=== PATIENT | male | born 1945 | race Caucasian/White ===

== ENCOUNTER 2023-02-14 21:08 | Outpatient (REF) | payer MEDICARE, SELFPAY ==
[2023-02-14 17:17] LABS: HGB 13.8 g/dL (13.5-17.5); MCH 33.1 pg (27.0-33.0); MCHC 34.5 % (32.0-36.0); MCV 96 fL (80-95); MPV 11.8 fL (8.0-11.0); Platelet Count 207 10^3/uL (130-400); RBC 4.17 10^6/uL (4.36-5.78); RDW 11.9 % (11.8-14.1); RDW-SD 41.1 fL; WBC 5.04 10^3/uL (4.4-10.8)
[2023-02-14 17:27] LABS: Calculated LDL 54 mg/dL (<100); Cholesterol 113 mg/dL (<200); HDL Cholesterol 48 mg/dL (40-60); Triglyceride 58 mg/dL (<150)
== END 2023-02-14 21:09 | disposition home or self-care (01) ==
LOC: NCHCN 21:08
PROVIDERS: PCP Internal Medicine; Visit Provider Nurse Practitioner Family
DX: I25.10 Atherosclerotic heart disease of native coronary artery without angina pectoris (principal); Z12.5 Encounter for screening for malignant neoplasm of prostate; I10 Essential (primary) hypertension; R53.83 Other fatigue; R35.1 Nocturia; R63.4 Abnormal weight loss
CPT/HCPCS: 80061; 84153; 85027

== ENCOUNTER 2023-03-08 19:01 | Outpatient (REF) | payer MEDICARE, SELFPAY ==
--- OUTSIDE RECORDS SUMMARY | 2023-03-08 19:03 | XMS_ITS | CCD ---
Author Name Unknown Address [address] [place] [address] [phone] Organization Unknown Address [address] [place] [address] [phone] Care Team Providers Care Bar Staff Name Role Phone JOSEPHINE GHOTRA Pushpa Attending Physician [phone] Vital Signs Unknown or Not Available. Allergies Allergy Code Allergy Type Reaction Status No Known Environmental Allergies 0 No known envir onmental allergies Active No Known Food Allergies 0 No known food allergies Active No Known Drug Allergies 0 No known drug allergies Active Procedures Unknown or Not Available. History of Immunizations Unknown or Not Available. Problems Problem Code Start Date Resolved Date Status HTN 98602532 Active HLD 21594321 Active Results Unknown or Not Available. Active Medications Medication Code Dose Units Frequency Route Modificatio n Start Date/Time Metoprolol Succinate 50MG Oral Tablet, Extended Release 655209 1 TABLET DAILY ORAL 13:50 Prescription Detail TAKE 1 TABLET ORAL DAILY Medications Administered During Visit Unknown or Not Available. 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 Discharge Instructions You were admitted to [facility] on 03/01/2023 15:02 with a principal diagnosis of Atherosclerotic heart disease of [place] coronary artery with other forms of angina pectoris You were discharged from [facility] on 03/01/2023 15:02 Should you have any questions prior to discharge, please contact a member of your healthcare team. If you have left the hospital and have any questions, please contact your primary care physician. Chief Complaint and Reason For Visit Unknown or Not Available. Function Status Unknown or Not Available. Plan of Care Unknown or Not Available. Referral/Transition of Care Unknown or Not Available.
--- OUTSIDE RECORDS SUMMARY | 2023-03-08 19:03 | XMS_ITS | CCD ---
Author Name Unknown Address [address] [place] [address] [phone] Organization Unknown Address [address] [place] [address] [phone] Care Team Providers Care Mobile Ui Developer Name Role Phone TRUONGPAULO Attending Physician [phone] Vital Signs Unknown or Not Available. Allergies [...] Code Start Date Resolved Date Status HTN [id number] Active HLD 58019945 Active Results Unknown or Not Available. Active Medications Medication Code Dose Units Frequency Route Modificatio n Start Date/Time Metoprolol Succinate 50MG Oral Tablet, Extended Release 862756 1 TABLET DAILY ORAL 13:50 Prescription Detail TAKE 1 TABLET ORAL DAILY Medications Administered During Visit Unknown or Not Available. Encounters Encounter Diagnosis Diagnosis Code Start Date Abnormal result of other cardiovascular function study [id number] 02/27/2023 Social History Smoking Status Code Start Date End Date Never smoker [id number] Patient Decision Aids Unknown or Not Available. Discharge Instructions You were admitted to [facility] on 02/27/2023 09:17 with a principal diagnosis of Abnormal result of other cardiovascular function study You were discharged from [facility] on 02/27/2023 09:17 Should you have any questions prior to [...]
--- OUTSIDE RECORDS SUMMARY | 2023-03-08 19:03 | XMS_ITS | CCD ---
Author Name Unknown Address [address] [place] [address] [phone] Organization Unknown Address [address] [place] [address] [phone] Care Team Providers Care Team Assembler Name Role Phone CHAGO RIVERA MD Attending Physician [phone] Vital Signs Unknown or Not Available. Allergies Unknown or Not Available. Procedures Unknown or Not Available. History of Immunizations Unknown or Not Available. Problems Problem Code Start Date Resolved Date Status HTN 82163220 Active HLD 73766113 Active Results COMPREHENSIVE METABOLIC PANE L (CMP) - Collect Date/Time: 04/03/2021 10:04 Test Name Code Test Result Test Units Test Ref Rang e GLUCOSE 2345-7 102 mg/dL L=70 H=116 BUN 3094-0 12 mg/dL L=6 H=25 CREATININE 2160-0 0.85 mg/dL L=0.67 H=1.17 SODIUM SERUM 2951-2 145 mmol/L L=136 H=145 POTASSIUM SERUM 2823-3 4.3 mmol/L L=3.4 H=5 .2 CHLORIDE SERUM 2075-0 106 mmol/L L=96 H=110 CARBON DIOXIDE (CO2) 2028-9 30 mmol/L L=22 H=34 ANION GAP 49998-6 8.9 mmol/L CALCIUM SERUM 56848-7 9.5 mg/dL L=8.2 H=10. 2 BILIRUBIN TOTAL 1975-2 0.5 mg/dL L=0.0 H=1 .3 ALK. PHOS. 6768-6 84 U/L L=46 H=116 SGOT (AST) 1920-8 20 U/L L=15 H=37 SGPT (ALT) 1742-6 33 U/L L=12 H=78 TOTAL PROTEIN 2885-2 7.9 gm/dL L=6.0 H=8.0 ALBUMIN 1751-7 4.4 gm/dL L=3.4 H=5.0 AGE 76 years eGFR (non-Afr.Amer.) 10795-4 88 mL/min eGFR (Afr-Scottish) 45389-8 107 mL/min FERRITIN - Collect Date/Time : 04/03/2021 10:04 Test Name Code Test Result Test Units Test Ref Rang e FERRITIN 2276-4 151 ng/mL L=8 H=388 LIPID PANEL - Collect Date/T clarisa: 04/03/2021 10:04 Test Name Code Test Result Test Units Test Ref Rang e CHOLESTEROL 2093-3 161 mg/dL L=0 H=200 TRIGLYCERIDES 2571-8 59 mg/dL L=56 H=240 HDL 2085-9 53 mg/dL L=30 H=74 non-HDL-C 58372-8 108 mg/dL L=0 H=160 LDL (CALC) 67887-3 96 mg/dL L=0 H=130 % HDL 32.9 % Chol/HDL Ratio 9830-1 3.0 L=0.0 H=4. 9 CHD Relative Risk 0.6 x Avg L=0.0 H =1.0 LDL/HDL Ratio 40841-5 1.8 L=0.0 H=3.5 CHD Relative Risk. 0.5 x Avg L=0.0 H=1.0 FASTING STATUS: FASTING N/A CBC W/ DIFFERENTIAL - Collec t Date/Time: 04/03/2021 10:04 Test Name Code Test Result Test Units Test Ref Rang e WBC 6690-2 4.50 th/cmm L=5.00 H=10.00 NEUT % 67.2 % L=40.0 H=80.0 LYMPH % 20.4 % L=10.0 H=50.0 MONO % 13067-1 8.9 % L=2.0 H=12.0 EOS % 3.1 % L=0.0 H=8.0 BASO % 0.2 % L=0.0 H=3.0 IG % 2514-8 0.2 % L=0.0 H=1.1 NRBC % 94864-5 0.0 % L=0.0 H=0.0 NEUT abs count 751-8 3.0 th/cmm L=1.6 H=8. 4 LYMPH abs count 731-0 0.9 th/cmm L=1.5 H=4 .0 MONO abs count 742-7 0.4 th/cmm L=0.2 H=1. 0 EOS abs count 711-2 0.1 th/cmm L=0.0 H=0.5 BASO abs count 704-7 0.0 th/cmm L=0.0 H=0. 2 IG abs count 65983-8 0.0 th/cmm L=0.0 H=0.1 NRBC abs count 04959-6 0.0 mil/cmm L=0.0 H=0. 0 RBC 789-8 4.52 mil/cmm L=4.30 H=6.20 HEMOGLOBIN 718-7 14.8 gm/dL L=13.0 H=17.0 HEMATOCRIT 4544-3 44 % L=45 H=52 MCV 787-2 97 fL L=82 H=92 MCH 785-6 32.7 pg L=27.0 H=31.0 MCHC 786-4 33.9 % L=32.0 H=36.0 RDW-SD 788-0 43.0 fL L=39.0 H=49.0 PLATELET COUNT 777-3 182 th/cmm L=150 H=45 0 Active Medications Medication Code Dose Units Frequency Route Modificatio n Start Date/Time Metoprolol Succinate 50MG Oral Tablet, Extended Release 171161 1 TABLET DAILY ORAL 13:50 Prescription Detail TAKE 1 TABLET ORAL DAILY Medications Administered During Visit Unknown or Not Available. Encounters Encounter Diagnosis Diagnosis Code Start Date Anemia [id number] 04/03/2021 Social History Smoking Status Code Start Date End Date Never smoker [id number] Patient Decision Aids Unknown or Not Available. Discharge Instructions You were admitted to [facility] on 04/03/2021 09:50 with a principal diagnosis of Anemia, unspecified You had the following tests done:CBC W/ DIFFERENTIALCOMPREHENSIVE METABOLIC PANEL (CMP)FERRITINLIPID PANEL You were discharged from [facility] on 04/03/2021 09:51 Should you have any questions prior to [...]
[2023-03-08 21:14] LABS: ESR 3 mm/hr (0-20)
[2023-03-08 21:38] LABS: C-Reactive Protein < 0.05 mg/dL (0.0-0.3)
[2023-03-11 11:55] LABS: EBNA IgG Negative (Negative); EBV Interpretation (See Note); VCA IgG Negative (Negative); VCA IgM Negative (Negative)
[2023-03-11 12:48] LABS: CMV IgG Antibody Negative (See Note)
[2023-03-11 12:55] LABS: Lyme Ab w Rflx to Lyme Confirm Negative (Negative)
[2023-03-12 14:54] LABS: Anaplasma phagocytophilum Negative (Negative); B. miyamotoi PCR Negative (Negative); Babesia divergens/MO-1 Negative (Negative); Babesia duncani Negative (Negative); Babesia microti Negative (Negative); Ehrlichia chaffeensis Negative (Negative); Ehrlichia ewingii/canis Negative (Negative); Ehrlichia muris eauclairensis Negative (Negative)
== END 2023-03-08 19:02 | disposition home or self-care (01) ==
LOC: NCHCN 19:01
PROVIDERS: PCP Internal Medicine; Visit Provider Nurse Practitioner Family
DX: R53.83 Other fatigue (principal)
CPT/HCPCS: 85652; 87798; 86140; 86618; 86644; 86664; 86665

== ENCOUNTER 2023-07-09 19:25 | Outpatient (REF) | payer MEDICARE, SELFPAY ==
[2023-07-09 14:35] LABS: Abs Immature Grans 0.01 10^3/uL (0.0-0.06); Absolute Eosinophil Count 0.02 10^3/uL (0.0-0.7); Absolute Lymphocyte Count 0.58 10^3/uL (1.2-3.4); Absolute Monocyte Count 0.34 10^3/uL (0.1-0.8); Absolute Neutrophil Count 2.63 10^3/uL (1.2-6.7); Eosinophils % 0.6; HCT 37.2 % (40.0-50.0); HGB 12.3 g/dL (13.5-17.5); Immature Grans % 0.3; Lymphocytes % 16.2; MCH 31.9 pg (27.0-33.0); MCHC 33.1 % (32.0-36.0); MCV 97 fL (80-95); Monocytes % 9.5; Neutrophils % 73.4; Platelet Count 189 10^3/uL (130-400); RBC 3.85 10^6/uL (4.36-5.78); RDW 12.4 % (11.8-14.1); WBC 3.58 10^3/uL (4.4-10.8)
[2023-07-09 14:49] LABS: ALT 21 U/L (16-63); AST 21 U/L (15-37); Alkaline Phosphatase 64 U/L (46-116); Anion Gap 6.1 mmol/L (3-11); BUN 14 mg/dL (7-18); Bilirubin, Total 0.6 mg/dL (0.2-1.0); CO2 27.9 mmol/L (21.0-32.0); CREATININE 0.9 mg/dL (0.70-1.30); Calcium 9.5 mg/dL (8.5-10.1); Chloride 106 mmol/L (98-107); Estimated GFR 88.51 (mL/min/1.73m2); Glucose 99 mg/dL (74-106); Potassium 4.3 mmol/L (3.5-5.1); Sodium 140 mmol/L (136-145); Total Protein 7.1 g/dL (6.4-8.2)
== END 2023-07-09 19:26 | disposition home or self-care (01) ==
LOC: NCHCN 19:25
PROVIDERS: PCP Internal Medicine; Visit Provider Nurse Practitioner Family
DX: R53.83 Other fatigue (principal)
CPT/HCPCS: 80053; 85025

== ENCOUNTER 2023-10-08 13:22 | Outpatient (REF) | payer MEDICARE, SELFPAY ==
[2023-10-08 15:09] LABS: Abs Immature Grans 0.01 10^3/uL (0.0-0.06); Absolute Basophil Count 0.01 10^3/uL (0.0-0.2); Absolute Eosinophil Count 0.01 10^3/uL (0.0-0.7); Absolute Lymphocyte Count 0.57 10^3/uL (1.2-3.4); Absolute Monocyte Count 0.32 10^3/uL (0.1-0.8); Absolute Neutrophil Count 2.85 10^3/uL (1.2-6.7); Basophils % 0.3; Eosinophils % 0.3; HCT 39.3 % (40.0-50.0); HGB 13.2 g/dL (13.5-17.5); Immature Grans % 0.3; Lymphocytes % 15.1; MCH 33.5 pg (27.0-33.0); MCHC 33.6 % (32.0-36.0); MCV 100 fL (80-95); MPV 11.1 fL (8.0-11.0); Monocytes % 8.5; Neutrophils % 75.5; Platelet Count 174 10^3/uL (130-400); RBC 3.94 10^6/uL (4.36-5.78); RDW 12.2 % (11.8-14.1); RDW-SD 45.7 fL; WBC 3.77 10^3/uL (4.4-10.8)
[2023-10-08 15:59] LABS: Iron 78 ug/dL (65-175); Total Iron Binding Capacity 251 ug/dL (250-450); Transferrin Sat 31 % (20-55)
[2023-10-08 16:04] LABS: ALT 24 U/L (16-63); AST 14 U/L (15-37); Alkaline Phosphatase 82 U/L (46-116); Anion Gap 9.6 mmol/L (3-11); BUN 12 mg/dL (7-18); Bilirubin, Total 0.5 mg/dL (0.2-1.0); CO2 27.4 mmol/L (21.0-32.0); CREATININE 0.8 mg/dL (0.70-1.30); Calcium 9.5 mg/dL (8.5-10.1); Calculated LDL 74 mg/dL (<100); Chloride 105 mmol/L (98-107); Cholesterol 146 mg/dL (<200); Estimated GFR 91.72 (mL/min/1.73m2); Glucose 96 mg/dL (74-106); HDL Cholesterol 63 mg/dL (40-60); Potassium 4.6 mmol/L (3.5-5.1); Sodium 142 mmol/L (136-145); Total Protein 6.9 g/dL (6.4-8.2); Triglyceride 48 mg/dL (<150)
== END 2023-10-08 13:23 | disposition home or self-care (01) ==
LOC: NCHCN 13:22
PROVIDERS: PCP Internal Medicine; Visit Provider Nurse Practitioner Family
DX: D64.9 Anemia, unspecified (principal); R53.83 Other fatigue; I25.10 Atherosclerotic heart disease of native coronary artery without angina pectoris
CPT/HCPCS: 80053; 80061; 83540; 83550; 85025

== ENCOUNTER 2024-04-09 19:07 | Outpatient (REF) | payer MEDICARE, SELFPAY ==
[2024-04-09 16:44] LABS: Abs Immature Grans 0.01 10^3/uL (0.0-0.06); Absolute Basophil Count 0.01 10^3/uL (0.0-0.2); Absolute Eosinophil Count 0.02 10^3/uL (0.0-0.7); Absolute Lymphocyte Count 0.73 10^3/uL (1.2-3.4); Absolute Monocyte Count 0.32 10^3/uL (0.1-0.8); Absolute Neutrophil Count 3.27 10^3/uL (1.2-6.7); Basophils % 0.2 %; Eosinophils % 0.5 %; HCT 37.9 % (40.0-50.0); HGB 13.4 g/dL (13.5-17.5); Immature Grans % 0.2 %; Lymphocytes % 16.7 %; MCH 33.6 pg (27.0-33.0); MCHC 35.4 % (32.0-36.0); MCV 95 fL (80-95); MPV 11.7 fL (8.0-11.0); Monocytes % 7.3 %; Neutrophils % 75.1 %; Platelet Count 175 10^3/uL (130-400); RBC 3.99 10^6/uL (4.36-5.78); RDW 11.9 % (11.8-14.1); RDW-SD 41.3 fL; WBC 4.36 10^3/uL (4.4-10.8)
[2024-04-09 17:26] LABS: ALT 24 U/L (16-63); AST 21 U/L (15-37); Alkaline Phosphatase 84 U/L (46-116); Anion Gap 7.4 mmol/L (3-11); BUN 10 mg/dL (7-18); Bilirubin, Total 0.72 mg/dL (0.2-1.0); CO2 28.6 mmol/L (21.0-32.0); CREATININE 0.9 mg/dL (0.70-1.30); Calcium 9.8 mg/dL (8.5-10.1); Chloride 103 mmol/L (98-107); Estimated GFR 87.96 (mL/min/1.73m2); Glucose 102 mg/dL (74-106); Potassium 4.1 mmol/L (3.5-5.1); Sodium 139 mmol/L (136-145); TSH 3.66 uIU/Ml (0.36-3.74); Total Protein 7.1 g/dL (6.4-8.2); Vitamin B12 742 pg/mL (193-986)
== END 2024-04-09 19:08 | disposition home or self-care (01) ==
LOC: NCHCN 19:07
PROVIDERS: PCP Internal Medicine; Visit Provider Nurse Practitioner Family
DX: R53.83 Other fatigue (principal)
CPT/HCPCS: 80053; 82607; 84443; 85025

== ENCOUNTER 2025-03-04 20:51 | Outpatient (REF) | payer MEDICARE, SELFPAY ==
[2025-03-04 21:02] LABS: HCT 36.5 % (40.0-50.0); HGB 12.5 g/dL (13.5-17.5); MCH 32.7 pg (27.0-33.0); MCHC 34.2 % (32.0-36.0); MCV 96 fL (80-95); MPV 10.6 fL (8.0-11.0); Platelet Count 286 10^3/uL (130-400); RBC 3.82 10^6/uL (4.36-5.78); RDW 11.8 % (11.8-14.1); RDW-SD 40.7 fL; WBC 5.84 10^3/uL (4.4-10.8)
[2025-03-04 21:39] LABS: Anion Gap 10.7 mmol/L (3-11); BUN 18 mg/dL (7-18); CO2 27.3 mmol/L (21.0-32.0); Calcium 9.5 mg/dL (8.5-10.1); Chloride 102 mmol/L (98-107); Estimated GFR 87.42 (mL/min/1.73m2); Glucose 112 mg/dL (74-106); Potassium 4.4 mmol/L (3.5-5.1); Sodium 140 mmol/L (136-145); TSH (W/Ref FT4) 3.78 uIU/mL (0.36-3.74); Vitamin B12 595 pg/mL (193-986)
== END 2025-03-04 20:52 | disposition home or self-care (01) ==
LOC: NCHCN 20:51
PROVIDERS: PCP Internal Medicine; Visit Provider Nurse Practitioner Family
DX: R41.89 Other symptoms and signs involving cognitive functions and awareness (principal)
CPT/HCPCS: 80048; 85027; 82607; 84439; 84443